=== PATIENT | male | born 1945 | race Caucasian/White ===

== ENCOUNTER 2017-05-02 14:37 | Inpatient (IN) | payer MEDICARE ==
[~2017-05-02] VITALS: Ht 172.7 cm; Wt 72.1 kg
--- NOTE | ~2017-05-02 | PR ---
[place], [place] PROGRESS NOTE [id number] UNIT #: [id number] ROOM: 422 DOCTOR: LISA ANDRADE MD BIRTHDATE: [birth year] DOS: 05/04/2017 SUBJECTIVE: The patient says his breathing is improving. OBJECTIVE: VITAL SIGNS: Blood pressure 138/76, heart rate of 88 beats per minute, breathing 18 times per minute, temperature 98 degrees Fahrenheit. GENERAL APPEARANCE: The patient is alert and oriented x 3, in no visible distress. HEENT AND NECK: Exam within normal limits. CARDIOVASCULAR SYSTEM: Heart rate is regular in rate and rhythm. S1 and S2 normally audible. LUNGS: Decreased breath sounds all over. ABDOMEN: Soft, nontender. No obvious organomegaly. Bowel sounds are present. EXTREMITIES: Without significant cyanosis or edema. IMPRESSION: 1. The patient with exacerbation of severe underlying chronic obstructive pulmonary disease with acute over chronic respiratory failure, being treated with corticosteroids, oxygen, antibiotics and bronchodilators and improving slowly. I am hoping patient will be better enough to be discharged to home tomorrow. 2. Obesity, disability and generalized weakness. The patient working with physical therapy. 3. Benign essential hypertension, which is being treated. Blood pressures are controlled. Blood pressures are being followed. LISA ANDRADE MD CM:PNTRANS LISA ANDRADE MD 05/05/175 interface
--- NOTE | ~2017-05-02 | PR ---
[place], [place] PROGRESS NOTE NAME: RADHA OVERTON UNIT #: [id number] ROOM: 422 DOCTOR: LISA ANDRADE MD BIRTHDATE: [birth year] DOS: 05/03/2017 SUBJECTIVE: The patient's breathing started improving with treatment. OBJECTIVE: VITAL SIGNS: Blood pressure 104/64, heart rate of 79 beats per minute, breathing 20 times per minute, temperature 98.6 degrees Fahrenheit. GENERAL: The patient is well developed and appropriate for usual state of health in no apparent distress HEENT: Pupils equal, round, and reactive to light. EOMI. There is no scleral icterus. NECK: C-spine is soft and supple, there is no meningismus. There is no cervical lymphadenopathy. LUNGS: Clear to auscultation bilaterally. There are no rales, wheezes or rhonchi. HEART: Regular rate and rhythm, no murmurs, clicks, rubs or gallops. ABDOMEN: Soft, nontender, nondistended. There are bowel sounds in all four quadrants. No rebound or guarding. EXTREMITIES: There is no peripheral cyanosis or edema. No focal swelling or erythema. NEUROLOGIC: The patient moves all four extremities with 5/5 strength. Cranial nerves II-XII are intact. Normal gait. Alert and oriented. SKIN: There is no apparent rash or petechiae. HEME/LYMPHATIC: There is no evidence of excessive bruising or lymphedema. PSYCHIATRIC: The patient does not appear anxious or depressed. IMPRESSION: 1. Exacerbation of severe underlying chronic obstructive pulmonary disease with acute over chronic respiratory failure, improving with treatment. 2. Obesity and disability, generalized weakness. The patient was working with physical therapy. 3. Benign essential hypertension. Blood pressures are being treated and controlled. [place], [place] PROGRESS NOTE NAME: RADHA OVERTON UNIT #: [id number] ROOM: 422 DOCTOR: LISA ANDRADE MD BIRTHDATE: [birth year] LISA ANDRADE MD CM:PNTRANS [id number] LISA ANDRADE MD 05/04/17 0246 interface
--- NOTE | ~2017-05-02 | DS ---
[place], [place] DISCHARGE SUMMARY NAME: RADHA OVERTON UNIT #: [id number] ROOM: 422 DOCTOR: RAYMOND MORGANLISA J BIRTHDATE: [birth year] DOS: 05/05/2017 DISCHARGE DIAGNOSES: 1. Exacerbation of severe underlying chronic obstructive pulmonary disease with acute over chronic respiratory failure, resolved. 2. Obesity, disability and generalized weakness with adult failure to thrive, improved with physical therapy. 3. Benign essential hypertension. 4. Coronary artery disease of the [place]eb[place] vessels. 5. Chronic right shoulder and chronic lower back pains. The patient had spinal stenosis and spinal fusion and L4-L5 decompression laminectomy by Dr. Hong in the past, 6. Advanced chronic obstructive pulmonary disease and chronic respiratory failure with oxygen dependence. 7. Benign prostatic hypertrophy. 8. Vitamin D deficiency. 9. Severe arthritis involving the right shoulder with chronic right shoulder pains. HISTORY OF PRESENT ILLNESS: 1. The patient presented to the Emergency Department with increased shortness of breath, cough, hypoxemia. The patient was diagnosed with having exacerbation of severe underlying chronic obstructive pulmonary disease and was treated with corticosteroids, oxygen, and nebulizer treatments along with antibiotics and breathing has improved to baseline. The patient's pulse oximetry was monitored and he was kept on DuoNebs also. The patient appears to have achieved maximum benefit from this admission and will be discharged to home to follow up with me on Monday, that is in less than a week. 2. Benign essential hypertension. The patient continued on lisinopril, amlodipine and blood pressures remained normal. There were monitored. 3. Chronic primary insomnia, treated and controlled with trazodone. 4. BPH and urine retention, treated and controlled with Flomax. 5. Gastroesophageal reflux disease and esophagitis, asymptomatic with omeprazole. DISCHARGE MANAGEMENT: The patient takes Symbicort twice a day, metoprolol 25 mg b.i.d., mirtazapine 15 mg at bedtime, trazodone 150 mg at bedtime, omeprazole 20 mg a day, amlodipine 10 mg a day, lisinopril 40 mg a day, Flomax 0.4 mg a day. Follow up at the office on Monday. [place], [place] DISCHARGE SUMMARY NAME: RADHA OVERTON UNIT #: [id number] ROOM: 422 DOCTOR: LISA ANDRADE MD BIRTHDATE: [birth year] LISA ANDRADE MD CM:MONIKA [id number] LISA ANDRADE MD 05/05/17 1313 interface
--- NOTE | ~2017-05-02 | WRIGHTHP ---
[place], [place] PATIENT HISTORY AND PHYSICAL EXAM NAME: RADHA OVERTON UNIT #: [id number] ROOM: 422 DOCTOR: LISA ANDRADE MD BIRTHDATE: [birth year] DOS: 05/02/2017 HISTORY OF PRESENT ILLNESS: The patient is a 71-year-old gentleman with a past medical history of: 1. Advanced COPD with home oxygen dependence. 2. Benign essential hypertension, benign prostatic hypertrophy, adult failure to thrive, type 2 diabetes mellitus, obesity, chronic lower back pains with history of spinal fusion at L4-L5 by Dr. Hong in the past, vitamin D deficiency, severe arthritis involving the right shoulder with chronic right shoulder pains. The patient presented to the Emergency Department with increased shortness of breath, cough and wheezing. The patient was diagnosed as having exacerbation of COPD and has been admitted for further management. No chest pain, no dizziness or fainting episodes. No other GI or urinary symptoms. REVIEW OF SYSTEMS: LUNGS: Increasing shortness breath, wheezing and cough. GASTROINTESTINAL: No nausea, vomiting, diarrhea or constipation. CARDIOVASCULAR: No chest pains or palpitations. FAMILY HISTORY: Noncontributory. HOME MEDICATIONS: DuoNeb, Flomax, lisinopril, amlodipine, omeprazole, mirtazapine, trazodone, metoprolol, Symbicort, Levaquin. ALLERGIES: FENTANYL which causes shortness of breath. PHYSICAL EXAMINATION: GENERAL: Alert and oriented x3, in no visible distress, obese, decreased breath sounds all over with expiratory wheezing. LABORATORY DATA: Normal serum electrolytes. ProBNP at 406. Chest x-ray without any acute abnormality. IMPRESSION: 1. Exacerbation of severe underlying chronic obstructive pulmonary disease and acute over chronic respiratory failure, to be treated with oxygen, DuoNeb, corticosteroids, antibiotics and followed closely on monitored bed. 2. Obesity and disability along with generalized weakness. The patient to work with physical therapy. 3. Benign essential hypertension. Blood pressures to be treated and controlled. [place], [place] PATIENT HISTORY AND PHYSICAL EXAM NAME: RADHA OVERTON UNIT #: [id number] ROOM: 422 DOCTOR: LISA ANDRADE MD BIRTHDATE: [birth year] LISA ANDRADE MD CM:HISPHYS:PATIENT HISTORY AND PHYSICAL EXAMINATION 00 32 LISA ANDRADE MD 05/02/172231 interface
[2017-05-02 14:37] VITALS: BP 107/60
[~2017-05-02 14:37] MED LIST: AMITRIPTYLINE75 MG PO; AMLODIPINE BESY1 TAB PO; AMLODIPINE BESY10 MG PO; AMLODIPINE BESYL5 MG PO; AMLODIPINE5 MG PO; AMOXICILLIN875 MG PO; AMOXIL500 MG PO; ATIVAN2 MG PO; AUGMENTIN 875875 MG PO; CITALOPRAM10 MG PO; COLACE100 MG PO; DOCUSATE SODIU100 M2 PO; DUONEB 3 MG/3 ML3 M1 INH; DUONEB 3 MG/3 ML3 M1 NEB; FLEXERIL10 MG PO; FLOMAX0.4 MG PO; GLUCOS-AMINE500 MG PO; HYDR12.5C PO; HYDRO PAR25 MG PO; IBU800 M1 PO; IBU800 MG PO; IBUPROFEN 30 M800 MG PO; K-TAB20 MEQ PO; KEFLEX500 MG PO; LEVAQUIN750 M1 PO; LISINOPRIL HCTZ1 TA1 PO; LISINOPRIL-HYDR1 TA1 PO; LISINOPRIL/HCTZ1 TA4 PO; LISINOPRIL40 MG PO; Lopressor25 MG PO; METOPROLOL SUCC25 M2 PO; MIRTAZAPINE15 M2 PO; MUCINEX600 MG PO; NEURONTIN600 MG PO; OMEPRAZOLE D/R20 MG PO; PERCOCET 325 MG1 TA5 PO; PERCOCET 325 MG1 TA7 PO; PREDNICOT20 MG PO; PREDNISONE10 MG PO; PREDNISONE20 MG PO; PRILOSEC20 M1 PO; PROSCAR5 MG PO; PULMICORT RESP0.5 MG INH; RITE AID MELATON1 MG PO; SOLU-MEDROL40 MG PO; SYMBICORT 10.10.2 M1 IH; SYMBICORT1 AE1 INH; TAMSULOSIN HCL0.4 MG PO; TERAZOSIN1 MG PO; TRAZODONE150 MG PO; TRICOR145 MG PO; VENTOLIN 02.5 MG/3 M INH; VIBRA-TAB100 M1 PO; VICO10300 PO; VICODIN ES 7501 TA1 PO; VITAMIN D2000 IU PO; XANAX1 MG PO; ZANTAC150 MG PO; ZESTRIL,PRINIVI20 MG PO
[2017-05-02 15:33] LABS: BASO % 0.6 % (0.0-1.0); EOS # 0.1 10*3/uL (0.0-0.4); EOS % 1.3 % (1.0-4.0); HEMATOCRIT 43.8 % (42.0-52.0); HEMOGLOBIN 13.2 g/dl (14.0-18.0); LYMPH # 1.8 10*3/uL (1.3-4.4); LYMPH % 27.3 % (27.0-41.0); MEAN CELL VOLUME 101.9 fl (80.0-94.0); MEAN CORPUSCULAR HGB 30.7 pg (27.0-31.0); MEAN CORPUSCULAR HGB CONC 30.1 g/dl (33.0-37.0); MONO # 0.6 10*3/uL (0.1-1.0); NEUT # 4.2 10*3/uL (2.3-7.9); NEUT % 61.5 % (47.0-73.0); PLATELET COUNT AUTOMATED 165 10*3/uL (130-400); RED CELL DISTRI WIDTH 12.5 % (0-14.5); WHITE BLOOD COUNT 6.8 10*3/uL (4.8-10.8)
[2017-05-02 15:41] LABS: PROTHROMBIN TIME 10.2 SECONDS (9.0-12.4)
[2017-05-02 15:50] LABS: ALBUMIN 3.5 gm/dl (3.1-4.5); ALKALINE PHOSPHATASE 69 U/L (45-117); BILIRUBIN, TOTAL 0.5 mg/dl (0.2-1.0); BUN 9 mg/dl (7-24); C-REACTIVE PROTEIN < 0.29 MG/DL (0-0.3); CARBON DIOXIDE 40 mmol/L (21-32); CHLORIDE 93 mmol/L (98-107); CKMB 1.3 ng/ml (0.5-3.6); CPK 49 U/L (39-308); EST GLOM FILT AFRICAN AMERICAN > 60 ml/min; GLUCOSE 118 mg/dL (65-99); MAGNESIUM 1.9 mg/dL (1.5-2.1); POTASSIUM 4.7 mmol/L (3.5-5.1); SGOT/AST 18 IU/L (3-35); SGPT/ALT 9 U/L (12-78); SODIUM 142 mmol/L (136-145); TOTAL PROTEIN 6.5 gm/dL (6.4-8.2); TROPONIN I < 0.015 ng/ml (<0.045)
[2017-05-02 16:18] VITALS: BP 135/96
[2017-05-02 17:25] VITALS: BP 127/65
[2017-05-02 17:29] LABS: LA>2 REFLEX 2 HR DRAW NOW
[2017-05-02] MEDS ORDERED: LISINOPRIL40 MG PO (17:50)
[2017-05-02 20:00] VITALS: BP 131/83
[2017-05-03] VITALS: BP 127/69
[2017-05-03 08:00] VITALS: BP 120/66
[2017-05-03 12:00] VITALS: BP 104/64
[2017-05-03 16:00] VITALS: BP 126/82
[2017-05-03 20:00] VITALS: BP 109/65
[2017-05-04] VITALS: BP 149/69
[2017-05-04 08:00] VITALS: BP 130/78
[2017-05-04 12:00] VITALS: BP 118/62
[2017-05-04 16:04] VITALS: BP 138/76
[2017-05-04 20:00] VITALS: BP 98/67
[2017-05-05] VITALS: BP 140/76
[2017-05-05 08:00] VITALS: BP 122/60
== END 2017-05-05 12:26 | disposition home or self-care (01) | DRG 189 ==
LOC: ED 14:37 → EDHOLD 16:33 → 4E 16:33
PROVIDERS: Emergency Medicine
DX: J96.21 Acute and chronic respiratory failure with hypoxia (principal); J44.1 Chronic obstructive pulmonary disease with (acute) exacerbation; Z99.81 Dependence on supplemental oxygen; E66.9 Obesity, unspecified; R62.7 Adult failure to thrive; I10 Essential (primary) hypertension; I25.10 Atherosclerotic heart disease of native coronary artery without angina pectoris; G89.29 Other chronic pain; M54.5 Low back pain; M25.511 Pain in right shoulder; M48.06 Spinal stenosis, lumbar region; E55.9 Vitamin D deficiency, unspecified; M19.90 Unspecified osteoarthritis, unspecified site; F51.04 Psychophysiologic insomnia; K21.0 Gastro-esophageal reflux disease with esophagitis; N40.1 Benign prostatic hyperplasia with lower urinary tract symptoms; R33.8 Other retention of urine; Z88.4 Allergy status to anesthetic agent; Z98.1 Arthrodesis status; Z68.22 Body mass index [BMI] 22.0-22.9, adult

== ENCOUNTER 2017-07-17 09:26 | Emergency (ER) | payer MEDICARE ==
[~2017-07-17] VITALS: Wt 68.0 kg
[2017-07-17 09:45] LABS: BASO % 0.4 % (0.0-1.0); EOS % 0.6 % (1.0-4.0); HEMATOCRIT 43.8 % (42.0-52.0); HEMOGLOBIN 12.7 g/dl (14.0-18.0); LYMPH # 0.8 10*3/uL (1.3-4.4); LYMPH % 17.5 % (27.0-41.0); MEAN CELL VOLUME 105.8 fl (80.0-94.0); MEAN CORPUSCULAR HGB 30.7 pg (27.0-31.0); MEAN PLATELET VOLUME 10.2 fl (9.6-12.3); MONO # 0.4 10*3/uL (0.1-1.0); MONO % 8.1 % (3.0-9.0); NEUT # 3.5 10*3/uL (2.3-7.9); NEUT % 72.6 % (47.0-73.0); PLATELET COUNT AUTOMATED 132 10*3/uL (130-400); RED BLOOD COUNT 4.14 10*6/uL (4.50-5.90); RED CELL DISTRI WIDTH 12.6 % (0-14.5); WHITE BLOOD COUNT 4.8 10*3/uL (4.8-10.8)
[2017-07-17 09:54] LABS: ACT PARTIAL THROMBO TIME 27.4 SECONDS (20.8-31.5)
[2017-07-17 10:03] LABS: ALBUMIN 3.5 gm/dl (3.1-4.5); ALKALINE PHOSPHATASE 63 U/L (45-117); BUN 10 mg/dl (7-24); CHLORIDE 96 mmol/L (98-107); CREATININE 0.56 mg/dL (0.70-1.30); MAGNESIUM 1.8 mg/dL (1.5-2.1); POTASSIUM 3.7 mmol/L (3.5-5.1); SGOT/AST 22 IU/L (3-35); SGPT/ALT 13 U/L (12-78); SODIUM 143 mmol/L (136-145); TOTAL PROTEIN 6.5 gm/dL (6.4-8.2)
[2017-07-17 10:04] LABS: TROPONIN I 0.035 ng/ml (<0.045)
[2017-07-17 10:19] VITALS: BP 118/68
[2017-07-17] MEDS ORDERED: ALBUTEROL2.5 MG/0.5 INH (10:33)
[2017-07-17] MEDS ORDERED: PREDNISONE50 MG PO (10:33)
[2017-07-17] MEDS ORDERED: VIBRAMYCIN100 MG PO (10:33)
== END 2017-07-17 12:27 | disposition home or self-care (01) ==
LOC: ED 09:26
PROVIDERS: Emergency Medicine
DX: J44.1 Chronic obstructive pulmonary disease with (acute) exacerbation (principal); K21.9 Gastro-esophageal reflux disease without esophagitis; I10 Essential (primary) hypertension; Z88.8 Allergy status to other drugs, medicaments and biological substances; Z79.899 Other long term (current) drug therapy; Z87.891 Personal history of nicotine dependence